=== PATIENT | female | born 1995 | race African-American/Black ===

== ENCOUNTER 2022-06-30 08:28 | Emergency (ER) | payer MEDICAID, OTHER ==
[2022-06-30] MEDS ORDERED: Ketorolac Tromethamine 30 MG/ML VIAL ONE (08:40)
[2022-06-30 09:45] LABS: SARS-CoV-2 NAA Rapid Test Not Detected (NotDetected)
== END 2022-06-30 10:44 | disposition home or self-care (01) ==
LOC: ERS 08:28
DX: J06.9 Acute upper respiratory infection, unspecified (principal); R50.9 Fever, unspecified; Z20.822 Contact with and (suspected) exposure to COVID-19
CPT/HCPCS: 96361; 96374; J1885

== ENCOUNTER 2022-07-22 18:19 | Emergency (ER) | payer OTHER | END 2022-07-22 20:49 | disposition left against medical advice (07) | LOC: ERS 18:19 | DX: Z53.21 Procedure and treatment not carried out due to patient leaving prior to being seen by health care provider (principal) ==